=== PATIENT | female | born 1985 | race Caucasian/White ===

== ENCOUNTER 2020-07-19 19:18 | Emergency (ER) | payer OTHER ==
[2020-07-19 19:29] VITALS: BP 187/94; PULSE 76; TEMP 98.5; BMI 29.2
[2020-07-19 20:09] LABS: BASO % 0.8 % (0-2.0); EOS % 0.6 % (0-4.5); HEMATOCRIT 39.8 % (32.4-45.2); HEMOGLOBIN 13.5 GM/dl (10.7-15.3); LYMPH % 29.3 % (8-40); MCH 31.7 pg (25.7-33.7); MEAN CELL VOLUME 93.3 fl (80-96); MEAN PLT VOLUME 7.5 fl (7.5-11.1); MONO % 5.8 % (3.8-10.2); NEUT % 63.5 % (42.8-82.8); PLATELET COUNT 316 K/MM3 (134-434); RBC 4.27 M/mm3 (3.60-5.2); RDW 12.1 % (11.6-15.6)
[2020-07-19 20:30] LABS: BILIRUBIN,TOTAL 0.8 mg/dl (0.2-1); CALCIUM 8.8 mg/dl (8.5-10); CREATININE 0.7 mg/dl (0.55-1.3); TOT PROT 6.7 g/dl (6.4-8.2)
[2020-07-19] MEDS ORDERED: ONDANSETRON 4 MG/2 ML VIAL ONE (20:36)
== END 2020-07-19 21:12 | disposition home or self-care (01) ==
LOC: FER 19:18
PROC: 3E023GC Introduction of Other Therapeutic Substance into Muscle, Percutaneous Approach (ICD-10-PCS; principal; 2020-07-19)
DX: K59.00 Constipation, unspecified (principal)
CPT/HCPCS: 36415; 74019-TC-FY; 80053; 85025; 99284-25

== ENCOUNTER 2020-07-20 07:32 | Emergency (ER) | payer OTHER ==
[2020-07-20 07:47] VITALS: BP 123/80; PULSE 99; TEMP 98.7; BMI 29.2
[2020-07-20 08:22] LABS: HCG,QUALITATIVE URINE Negative
== END 2020-07-20 10:11 | disposition home or self-care (01) ==
LOC: FER 07:32
DX: K59.00 Constipation, unspecified (principal)
CPT/HCPCS: 74177-TC; 81003; 84703; 99285-25; Q9967

== ENCOUNTER 2020-09-15 04:51 | Day surgery (SDC) | payer OTHER ==
[2020-09-13 15:27] VITALS: BMI 28.5
[2020-09-15 09:42] VITALS: BP 134/89; PULSE 91
[2020-09-15 10:28] VITALS: TEMP 97.2
[2020-09-16 16:08] LABS: GLIADIN ANTIBODY IGA 2 units (0-19); GLIADIN ANTIBODY IGG 2 units (0-19); TRANSGLUTAMINASE IGG < 2 U/mL (0-5)
== END 2020-09-15 09:35 | disposition home or self-care (01) ==
LOC: JASU-ENDO 04:51
PROVIDERS: ATTEND Internal Medicine Gastroenterology
PROC: 0DB78ZX Excision of Stomach, Pylorus, Via Natural or Artificial Opening Endoscopic, Diagnostic (ICD-10-PCS; 2020-09-15)
PROC: 0DB98ZX Excision of Duodenum, Via Natural or Artificial Opening Endoscopic, Diagnostic (ICD-10-PCS; principal; 2020-09-15 08:27)
DX: K31.7 Polyp of stomach and duodenum (principal); K25.9 Gastric ulcer, unspecified as acute or chronic, without hemorrhage or perforation
CPT/HCPCS: 36415; 81025; 82784; 83516; 88305-TC; 88342-TC